=== PATIENT | female | born 1955 | race Hispanic/Latino ===

== ENCOUNTER → 2020-10-19 | Outpatient (CLI) | payer MEDICARE, OTHER ==
[~2020-10-19] MED LIST: COVID-19 VACC, MRNA(MODERNA)/PF 100 MCG/0.5 ML VIAL IM ONE
== END | disposition home or self-care (01) ==
LOC: VACCPMC 16:49
DX: Z23 Encounter for immunization (principal); Z20.822 Contact with and (suspected) exposure to COVID-19
CPT/HCPCS: 91301

== ENCOUNTER → 2020-11-16 | Outpatient (CLI) | payer MEDICARE, OTHER | END | disposition home or self-care (01) | LOC: VACCPMC 09:00 | DX: Z23 Encounter for immunization (principal); Z20.822 Contact with and (suspected) exposure to COVID-19 | CPT/HCPCS: 91301 ==

== ENCOUNTER 2025-04-11 14:07 | Emergency (ER) | payer MEDICARE, OTHER ==
[~2025-04-11] VITALS: Ht 149.9 cm; Wt 38.6 kg
[2025-04-11 15:19] VITALS: TEMP 99.1
[2025-04-11] MEDS: ONDANSETRON HCL INJ 2MG/ML 2ML 2 MG/ML VIAL IV STA (15:37)
[2025-04-11] MEDS: SODIUM CHLORIDE 0.9% 1000ML 1,000 ML IV STA (15:37)
[2025-04-11 15:39] LABS: BASOPHILS % 0.6 % (0.0-1.0); EOSINOPHILS % 0.2 % (0.0-6.0); LYMPHOCYTES % 22.8 % (18.0-39.1); MONOCYTES % 5.5 % (4.4-11.3); NEUTROPHILS % 70.6 % (38.7-80.0); RED CELL DISTRIBUTION WIDTH 12.4 % (11.7-14.4)
[2025-04-11 15:54] LABS: INR 0.92
[2025-04-11 16:04] LABS: EST GLOMERULAR FILTRATION RATE 74 ML/MIN (>=60)
[2025-04-11] MEDS ORDERED: IOPAMIDOL 370 MG/ML 100 ML INFUS..BTL INJ ONE (16:12)
[2025-04-11 17:00] VITALS: PULSE 87; RESP 15
[2025-04-11 17:12] LABS: LEUKOCYTE ESTERASE ,URINE TRACE (NEGATIVE)
[2025-04-11 17:13] LABS: PROTEIN,URINE DIPSTICK 1+ (NEGATIVE); URINE UROBILINOGEN 0.2 mg/dL (0.2 - 1)
[2025-04-11 17:23] LABS: EPITHELIAL CELLS,URINE FEW /LPF
[2025-04-11] MEDS ORDERED: ONDANSETRON ODT4 MG PO (17:54)
[2025-04-11] MEDS ORDERED: CEFUROXIME250 MG PO (17:54)
[2025-04-11 18:12] VITALS: BP 169/93; PULSE 85; RESP 15; TEMP 98.9; O2SAT 99
== END 2025-04-11 18:16 | disposition home or self-care (01) ==
LOC: ER 14:46
DX: R10.30 Lower abdominal pain, unspecified (principal); N39.0 Urinary tract infection, site not specified; N83.201 Unspecified ovarian cyst, right side; R63.0 Anorexia; I10 Essential (primary) hypertension; E11.65 Type 2 diabetes mellitus with hyperglycemia
CPT/HCPCS: 36415; 71260; 74177; 80053; 81001; 83690; 83735; 84443; 84484; 85025; 85610; 85730; 93005; 99284; J2405; J2470; J7030; Q9967